=== PATIENT | female | born 1995 | race Two or more races ===

== ENCOUNTER 2019-02-05 06:33 | Emergency (ER) | payer SELFPAY ==
--- NOTE | 2019-02-05 07:13 | ED Physician Documentation ---
PD HPI ABD PAIN - Stated complaint Stated Complaint: ABX PX - Chief complaint Chief Complaint: Abd Pain - History obtained from History obtained from: Patient, Other (extended family - with help from them with translation.) - History of Present Illness Timing - onset: Last night (about 10 pm.) Timing - details: Abrupt onset (with eating), Still present Quality: Aching, Pain Location: Epigastric Radiation: Lower back. No: Upper back Improved by: No: Eating, Vomiting, Meds (tried omeprazole that she had previously. Had been taking it daily but stopped about a week ago, planned for PRN since she had felt so well. Took few tablets of the H2 kris overnight without improvment.) Worsened by: Eating Associated symptoms: Nausea, Loss of appetite. No: Fever, Vomiting, Diarrhea, Melena, Hematochezia, Chest pain Similar symptoms before: Diagnosis (gastritis) Recently seen: Not recently seen Review of Systems Constitutional: denies: Fever, Chills, Myalgias Nose: denies: Rhinorrhea / runny nose, Congestion Throat: denies: Sore throat Respiratory: denies: Cough GI: reports: Abdominal Pain, Nausea. denies: Abdominal Swelling, Vomiting, Diarrhea, Bloody / black stool : denies: Dysuria, Frequency Musculoskeletal: denies: Neck pain, Back pain PD PAST MEDICAL HISTORY - Past Medical History Cardiovascular: None Respiratory: None Neuro: None Endocrine/Autoimmune: None GI: Other (gastritis in the past, Rx with Omprazole and did okay on meds. ) - Past Surgical History General: Cholecystectomy - Present Medications Home Medications: Ambulatory Orders Medication Instructions Recorded Confirmed Hydrocodone/Acetaminophen [Hatley 1 each PO Q6H PRN #20 tablet 02/05/19 5-325 Tablet] Lidocaine Viscous 2% [Xylocaine 5 ml PO Q4H PRN #100 ml 02/05/19 Viscous 2%] Sucralfate [Carafate] 1 gm PO ACHS #28 tablet 02/05/19 - Allergies Allergies/Adverse Reactions: Allergies Allergy/AdvReac Type Severity Reaction Status Date / Time No Known Drug Allergies Allergy Verified 02/05/19 06:49 PD ED PE NORMAL - Vitals Vital signs reviewed: Yes - General General: Alert and oriented X 3, Well developed/nourished, Other (appears uncomfortable due to epigastric pain. ) - HEENT HEENT: Pharynx benign - Neck Neck: Supple, no meningeal sign, No adenopathy - Cardiac Cardiac: RRR, No murmur - Respiratory Respiratory: Clear bilaterally - Abdomen Abdomen: Normal bowel sounds, Soft, Non distended, No organomegaly, Other (tender epigastric area without guarding nor percussion tenderness. Not tender RUQ. ) Results - Vitals Vitals: Vital Signs - 24 hr 02/05/19 02/05/19 06:46 08:32 Temperature 36.9 C 36.7 C Heart Rate 79 77 Respiratory 17 16 Rate Blood Pressure 130/79 134/79 H O2 Saturation 100 100 Oxygen O2 Source Room air - Labs Labs: Laboratory Tests 02/05/19 02/05/19 02/05/19 07:10 07:10 08:06 WBC 10.6 RBC 4.59 Hgb 12.7 Hct 39.6 MCV 86.3 MCH 27.7 MCHC 32.1 RDW 13.4 Plt Count 320 MPV 10.8 Neut # (Auto) 8.5 H Lymph # (Auto) 1.6 Keith # (Auto) 0.4 Eos # (Auto) 0.0 Baso # (Auto) 0.0 Absolute Nucleated RBC 0.00 Nucleated RBC % 0.0 Sodium 138 Potassium 3.9 Chloride 104 Carbon Dioxide 24 Anion Gap 10.0 BUN 9 Creatinine 0.7 Estimated GFR (MDRD) 103 Glucose 139 H Calcium 9.3 Total Bilirubin 0.6 AST 22 ALT 34 Alkaline Phosphatase 80 Total Protein 7.9 Albumin 4.1 Globulin 3.8 Albumin/Globulin Ratio 1.1 Lipase 26 Urine Color YELLOW Urine Clarity CLEAR Urine pH 6.0 Ur Specific [place] 1.020 Urine Protein NEGATIVE Urine Glucose (UA) NEGATIVE Urine Ketones NEGATIVE Urine Occult Blood TRACE-INTA Urine Nitrite NEGATIVE Urine Bilirubin NEGATIVE Urine Urobilinogen 0.2 (NORMAL) Ur Leukocyte Esterase NEGATIVE Ur Microscopic Review NOT INDICATED Urine Culture Comments NOT INDICATED Urine HCG, Qual 02/05/19 08:06 WBC RBC Hgb Hct MCV MCH MCHC RDW Plt Count MPV Neut # (Auto) Lymph # (Auto) Keith # (Auto) Eos # (Auto) Baso # (Auto) Absolute Nucleated RBC Nucleated RBC % Sodium Potassium Chloride Carbon Dioxide Anion Gap BUN Creatinine Estimated GFR (MDRD) Glucose Calcium Total Bilirubin AST ALT Alkaline Phosphatase Total Protein Albumin Globulin Albumin/Globulin Ratio Lipase Urine Color Urine Clarity Urine pH Ur Specific [place] 1.020 Urine Protein Urine Glucose (UA) Urine Ketones Urine Occult Blood Urine Nitrite Urine Bilirubin Urine Urobilinogen Ur Leukocyte Esterase Ur Microscopic Review Urine Culture Comments Urine HCG, Qual NEGATIVE PD MEDICAL DECISION MAKING - ED course Complexity details: re-evaluated patient (improved moderately with GI cocktail. Then given carafate and pain med. ), considered differential (gastritis vs GB vs pancreatitis. Will check labs. She does not have GB. ), d/w patient Departure - Departure Disposition: 01 Home, Self Care Clinical Impression: Epigastric abdominal pain Gastritis Qualifiers: Gastritis type: unspecified gastritis Chronicity: acute Gastritis bleeding: without bleeding Qualified Code(s): K29.00 - Acute gastritis without bleeding Condition: Stable Record reviewed to determine appropriate education?: Yes Instructions: ED PUD Vs Gastritis Prescriptions: Hydrocodone/Acetaminophen [Hatley 5-325 Tablet] 1 each PO Q6H PRN #20 tablet PRN Reason: Pain Lidocaine Viscous 2% [Xylocaine Viscous 2%] 5 ml PO Q4H PRN #100 ml PRN Reason: Pain Sucralfate [Carafate] 1 gm PO ACHS #28 tablet Print Language: Macedonian Comments: Continue the pantoprazole that you have daily for the next few weeks. In the short-term add sucralfate 3 or 4 times a day to help coat the stomach. Add antacid such as Maalox or Mylanta along with some of the lidocaine to help with the stomach pain. To that add hydrocodone if needed for pain. Recheck if not improving over the next couple of days. Discharge Date/Time: 02/05/19 08:36
[2019-02-05 07:14] LABS: BASOPHILS % (AUTO) 0.2 %; EOSINOPHILS % (AUTO) 0.2 %; HGB - HEMOGLOBIN 12.7 g/dL (12.0-16.0); LYMPHOCYTES # (AUTO) 1.6 10^3/uL (1.5-3.5); LYMPHOCYTES % (AUTO) 15.2 %; MEAN CORPUSCULAR HEMOGLOBIN 27.7 pg (27.0-31.0); MEAN CORPUSCULAR HGB CONC 32.1 g/dL (32.0-36.0); MEAN CORPUSCULAR VOLUME 86.3 fL (81.0-99.0); MEAN PLATELET VOLUME 10.8 fL (7.9-10.8); MONOCYTES # (AUTO) 0.4 10^3/uL (0.0-1.0); MONOCYTES % (AUTO) 3.8 %; NEUTROPHILS # (AUTO) 8.5 10^3/uL (1.5-6.6); NEUTROPHILS % (AUTO) 80.2 %; PLT - PLATELET COUNT 320 10^3/uL (130-450); RED BLOOD COUNT 4.59 10^6/uL (4.20-5.40); RED CELL DISTRIBUTION WIDTH 13.4 % (12.0-15.0); WHITE BLOOD COUNT 10.6 x10^3/uL (4.8-10.8)
[2019-02-05] MEDS ORDERED: LIDOCAINE VISCOUS 2% 15 ML UDC MM STA (07:18)
[2019-02-05] MEDS ORDERED: MAG HYDROX/AL HYDROX/SIMETH 30 ML UDC PO STA (07:18)
[2019-02-05] MEDS ORDERED: FAMOTIDINE 20 MG TABLET PO STA (07:18)
[2019-02-05 07:28] LABS: ALBUMIN 4.1 g/dL (3.2-5.5); ALBUMIN/GLOBULIN RATIO 1.1 (1.0-2.2); BILIRUBIN,TOTAL 0.6 mg/dL (0.2-1.0); CALCIUM 9.3 mg/dL (8.5-10.3); CREATININE 0.7 mg/dL (0.4-1.0); TOTAL PROTEIN 7.9 g/dL (6.7-8.2)
[2019-02-05] MEDS ORDERED: SUCRALFATE 1 GM/10 ML UDC PO STA (08:17)
[2019-02-05] MEDS ORDERED: HYDROcod/ACETAM 5/325 MG TABLET PO STA (08:17)
[2019-02-05 08:19] LABS: BILIRUBIN,URINE NEGATIVE (NEGATIVE); GLUCOSE, URINE (UA) NEGATIVE (NEGATIVE); KETONES,URINE (UA) NEGATIVE (NEGATIVE); LEUKOCYTE ESTERASE, URINE NEGATIVE (NEGATIVE); NITRITE,URINE NEGATIVE (NEGATIVE); OCCULT BLOOD,URINE TRACE-INTA (NEGATIVE); PROTEIN,URINE NEGATIVE (NEGATIVE); UROBILINOGEN,URINE 0.2 (NORMAL) E.U./dL (NORMAL)
[2019-02-05 08:22] LABS: CLARITY,URINE CLEAR (CLEAR); HCG UR QUAL NEGATIVE
[2019-02-05 08:33] VITALS: BP 134/79
== END 2019-02-05 08:36 | disposition home or self-care (01) ==
LOC: ED 06:33
DX: K29.00 Acute gastritis without bleeding (principal)
CPT/HCPCS: 36415; 80053; 81003; 81025; 83690; 85025; 99283; 99284; A9270; 81001; 87086